=== PATIENT | male | born 1960 | race Caucasian/White ===

== ENCOUNTER 2024-11-05 07:49 | Day surgery (SDC) | payer OTHER ==
[2024-11-03 15:24] VITALS: BMI 31.2
[2024-11-05] MEDS ORDERED: PROPOFOL 160 ML ONE (08:17)
[2024-11-05 09:02] VITALS: TEMP 97.1
[2024-11-05 09:22] VITALS: BP 110/65; PULSE 75; RESP 18
== END 2024-11-05 09:22 | disposition home or self-care (01) ==
LOC: FASU-ENDO 07:49
PROVIDERS: ATTEND Internal Medicine Gastroenterology
PROC: 0DBM8ZX Excision of Descending Colon, Via Natural or Artificial Opening Endoscopic, Diagnostic (ICD-10-PCS; 2024-11-05)
PROC: 0DBN8ZX Excision of Sigmoid Colon, Via Natural or Artificial Opening Endoscopic, Diagnostic (ICD-10-PCS; principal; 2024-11-05 08:33)
DX: Z12.11 Encounter for screening for malignant neoplasm of colon (principal); K57.30 Diverticulosis of large intestine without perforation or abscess without bleeding; D12.4 Benign neoplasm of descending colon; K63.5 Polyp of colon
CPT/HCPCS: 82962; 88305-TC